=== PATIENT | female | born 1945 | race Asian ===

== ENCOUNTER → 2018-06-07 | Outpatient (CLI) | payer OTHER | END | disposition home or self-care (01) | LOC: CFH 09:30 | PROVIDERS: ATTEND Nurse Practitioner Family | DX: G31.9 Degenerative disease of nervous system, unspecified (principal); R51 Headache | CPT/HCPCS: 70450 ==

== ENCOUNTER → 2019-06-10 | Outpatient (CLI) | payer MEDICARE | END | disposition home or self-care (01) | LOC: EDSTATUS 09:30 → RAD 12:01 → EDSTATUS 13:30 | PROVIDERS: ATTEND Nurse Practitioner | DX: R09.89 Other specified symptoms and signs involving the circulatory and respiratory systems (principal) | CPT/HCPCS: 93880 ==